=== PATIENT | male | born 1965 | race American Indian/Alaskan Native ===

== ENCOUNTER 2018-06-11 10:46 | Emergency (ER) | payer MEDICAID ==
--- NOTE | 2018-06-11 12:09 | CR ---
CHEST: Portable CLINICAL HISTORY:Chest pain COMPARISON:None FINDINGS: Patient has an Alvckw-a-Sbnv catheter from the left subclavian approach. The tip is in the superior vena cava. Heart and pulmonary vascularity are normal. Lungs are clear. There are no effusi ons. IMPRESSION: No acute cardiopulmonary process
--- NOTE | 2018-06-11 12:32 | EDM.PDOC ---
ED HPI GENERAL MEDICAL PROBLEM - General Chief Complaint: Chest Pain Stated Complaint: [facility] Time Seen by Provider: 06/11/18 11:10 Source of Information: Reports: Patient, EMS History Limitations: Reports: No Limitations - History of Present Illness INITIAL COMMENTS - FREE TEXT/NARRATIVE: pt arrived with a history of chest tightness. He states this started and he felt like his heart was racing. He felt shaking just before he went to class. He was not sob. He has noted ankle swelling by midday. Onset: Today, Other ([place] like his heart was racing. ) Duration: Hour(s): Location: Reports: Chest Associated Symptoms: Reports: No Other Symptoms, Other ( Pt had chest tightness. ) Back Pain Score (Numeric/FACES): 3 - Related Data Allergies Allergy/AdvReac Type Severity Reaction Status Date / Time No Known Allergies Allergy Verified 06/11/18 11:25 Home Meds: Home Meds Lisinopril 1 tab PO DAILY 06/11/18 [History] Omeprazole 1 tab PO DAILY 06/11/18 [History] Past Medical History Cardiovascular History: Reports: Hypertension Gastrointestinal History: Reports: GERD Musculoskeletal History: Reports: Back Pain, Chronic, Fracture Psychiatric History: Reports: Addiction Oncologic (Cancer) History: Reports: Colon Dermatologic History: Reports: Cellulitis - Past Surgical History GI Surgical History: Reports: Appendectomy, Colon, Colostomy Social & Family History - Tobacco Use Smoking Status *Q: Light Tobacco Smoker Years of Tobacco use: 30 Packs/Tins Daily: 0.3 - Recreational Drug Use Recreational Drug Use: Yes Recreational Drug Type: Reports: Methamphetamine ED ROS GENERAL - Review of Systems Review Of Systems: See Below Constitutional: Reports: No Symptoms HEENT: Reports: No Symptoms Respiratory: Reports: No Symptoms Cardiovascular: Reports: Other ( chest tightness and palitations. ) Endocrine: Reports: No Symptoms GI/Abdominal: Reports: Constipation : Reports: No Symptoms Musculoskeletal: Reports: No Symptoms Skin: Reports: No Symptoms ED EXAM, GENERAL - Physical Exam Exam: See Below Free Text/Narrative:: pt arrived with chest tightness. He felt like his heart was racing. He has noted ankle swelling by mid day. Exam Limited By: No Limitations General Appearance: Alert, Mild Distress Ears: Normal TMs Nose: Normal Inspection Throat/Mouth: Normal Inspection Head: Atraumatic Neck: Normal Inspection Respiratory/Chest: No Respiratory Distress Cardiovascular: Regular Rate, Rhythm GI/Abdominal: Soft, Non-Tender (Male) Exam: Deferred Rectal (Males) Exam: Deferred Extremities: Pedal Edema, Other ( Plus 1-2 pedal edema. ) Neurological: Alert, Oriented, Normal Cognition Psychiatric: Normal Affect Course - Vital Signs Last Recorded V/S: Last Vital Signs Temp 36.4 C 06/11/18 11:04 Pulse 74 06/11/18 11:04 Resp 15 06/11/18 11:04 BP 165/95 H 06/11/18 11:04 Pulse Ox 98 06/11/18 11:04 - Orders/Labs/Meds Orders: Active Orders 24 hr Category Date Time Status EKG Documentation Completion [RC] ASDIRECTED Care 06/11/18 10:55 Active EKG 12 Lead [EK] Routine Ther 06/11/18 10:55 Ordered Labs: Laboratory Tests 06/11/18 06/11/18 06/11/18 Range/Units 11:09 11:09 11:09 WBC 6.4 (4.5-11.0) K/uL RBC 4.63 (4.30-5.90) M/uL Hgb 12.4 (12.0-15.0) g/dL Hct 38.7 L (40.0-54.0) % MCV 84 (80-98) fL MCH 27 (27-31) pg MCHC 32 (32-36) % Plt Count 363 (150-400) K/uL Neut % (Auto) 66 (36-66) % Lymph % (Auto) 18 L (24-44) % [place] % (Auto) 9 H (2-6) % Eos % (Auto) 6 H (2-4) % Baso % (Auto) 1 (0-1) % Sodium 140 (140-148) mmol/L Potassium 3.5 L (3.6-5.2) mmol/L Chloride 105 (100-108) mmol/L Carbon Dioxide 25 (21-32) mmol/L Anion Gap 13.5 (5.0-14.0) mmol/L BUN 19 H (7-18) mg/dL Creatinine 1.3 (0.8-1.3) mg/dL Est Cr Clr Drug Dosing 69.41 mL/min Estimated GFR (MDRD) 58 L (>60) Glucose 107 H (74-106) mg/dL Calcium 8.5 (8.5-10.1) mg/dL Total Bilirubin 0.3 (0.2-1.0) mg/dL AST 18 (15-37) U/L ALT 32 (12-78) U/L Alkaline Phosphatase 84 (46-116) U/L Troponin I < 0.017 (0.000-0.056) ng/mL Total Protein 7.0 (6.4-8.2) g/dL Albumin 3.1 L (3.4-5.0) g/dL Globulin 3.9 H (2.3-3.5) g/dL Albumin/Globulin Ratio 0.8 L (1.2-2.2) - Re-Assessments/Exams Free Text/Narrative Re-Assessment/Exam: 06/11/18 12:32 Pt arrived with a history of chest tightness. He had a feeling of anxiety . . He felt like his heart was racing. 06/11/18 12:34 cardiac enzymes and ekg and chest xray looked good. Departure - Departure Time of Disposition: 12:34 Disposition: Home, Self-Care 01 Condition: Fair Clinical Impression: Chest tightness Referrals: PCP,None [Primary Care Provider] - Care Plan Goals: rtc for a treadmill study., alisia stockings to avoid swelling, cont lisinopril the same. - My Orders Last 24 Hours: My Active Orders 06/11/18 10:55 EKG Documentation Completion [RC] ASDIRECTED EKG 12 Lead [EK] Routine - Assessment/Plan Last 24 Hours: My Active Orders 06/11/18 10:55 EKG Documentation Completion [RC] ASDIRECTED EKG 12 Lead [EK] Routine
== END 2018-06-11 13:40 | disposition home or self-care (01) ==
LOC: JP.ED 10:46
DX: R07.89 Other chest pain (principal); F17.210 Nicotine dependence, cigarettes, uncomplicated; I10 Essential (primary) hypertension; Z79.899 Other long term (current) drug therapy
CPT/HCPCS: 36415; 71045; 71045-26; 80053; 84484; 85025; 93005; 99285-25